=== PATIENT | female | born 1945 | race Two or more races ===

== ENCOUNTER 2022-02-21 14:21 | Emergency (ER) | payer OTHER ==
[~2022-02-21] VITALS: Ht 147.3 cm; Wt 65.8 kg
[2022-02-21] MEDS ORDERED: TRULICITY0.75 MG/0. SQ (14:38)
[2022-02-21] MEDS ORDERED: TRAZODONE HCL150 MG PO (14:39)
[2022-02-21] MEDS ORDERED: TOUJEO SOL300 UNIT/1 SUBCUTANEO (14:39)
== END 2022-02-21 19:05 | disposition home or self-care (01) ==
LOC: ER 14:21
DX: R10.30 Lower abdominal pain, unspecified (principal); N39.0 Urinary tract infection, site not specified; B96.29 Other Escherichia coli [E. coli] as the cause of diseases classified elsewhere